=== PATIENT | male | born 1965 ===

== ENCOUNTER 2025-01-01 08:24 | Day surgery (SDC) | payer OTHER ==
[~2025-01-01] VITALS: Ht 180.3 cm; Wt 109.3 kg
[2025-01-01] MEDS ORDERED: CeFAZolin Sodium 2,000 MG VIAL ONE (08:40)
[2025-01-01] MEDS ORDERED: TRAM50 PO (08:42)
[2025-01-01] MEDS ORDERED: TAMSULOSIN HCL0.4 M1 PO (08:42)
[2025-01-01] MEDS ORDERED: ATORVASTATIN CA20 MG PO (08:43)
[2025-01-01] MEDS ORDERED: Aspir 8181 MG PO (08:49)
--- NOTE | 2025-01-01 09:13 | NUR ---
01/01/25 0913 Opal Tejada MED NOTES INPUTED BY MARVA FROM [phone] TO [phone]. END NOTE RDS
[2025-01-01] MEDS ORDERED: FentaNYL Citrate 50 MCG/ML 2 ML Injection ONE (09:28)
[2025-01-01] MEDS ORDERED: Dexamethasone Sod Phos 10 MG/ML 1ML VIAL ONE (09:38)
[2025-01-01] MEDS ORDERED: Ondansetron HCl 2 MG / ML 2ML Vial ONE (09:38)
[2025-01-01] MEDS ORDERED: ePHEDrine Sulfate 50 MG/ML 1ML Injection ONE (09:41)
[2025-01-06 05:58] LABS: CALCULI MASS 58 mg
== END 2025-01-01 11:00 | disposition home or self-care (01) ==
LOC: ORSCSDS 08:24
PROVIDERS: Urology
PROC: 0TCB8ZZ Extirpation of Matter from Bladder, Via Natural or Artificial Opening Endoscopic (ICD-10-PCS; principal; 2025-01-01 10:00)
DX: N21.0 Calculus in bladder (principal); I10 Essential (primary) hypertension; G47.33 Obstructive sleep apnea (adult) (pediatric); Z79.899 Other long term (current) drug therapy
CPT/HCPCS: 82365; 82947; C1758; J0690; J1100; J2405; J2704; J3010; J7120